=== PATIENT | male | born 1975 | race Two or more races ===

== ENCOUNTER 2018-09-10 08:27 | Emergency (ER) | payer BC ==
[~2018-09-10] VITALS: Ht 175.3 cm; Wt 116.9 kg
[2018-09-10 08:28] VITALS: BP 143/79
[2018-09-10] MEDS ORDERED: DIPH,PERTUSS(ACELL),TET VAC/PF 0.5 ML IM-VACC ONE ×2 (09:00→09:23)
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
--- NOTE | 2018-09-10 10:49 | NUR ---
Patient/Caregiver given discharge instructions and they have confirmed that they understand the instructions. Patient ambulatory with steady gait.
== END 2018-09-10 10:54 | disposition home or self-care (01) ==
LOC: ED 10:47
DX: S16.1XXA Strain of muscle, fascia and tendon at neck level, initial encounter (principal); S83.91XA Sprain of unspecified site of right knee, initial encounter; V49.09XA Driver injured in collision with other motor vehicles in nontraffic accident, initial encounter; Y93.89 Activity, other specified; Y92.89 Other specified places as the place of occurrence of the external cause; Y99.8 Other external cause status
CPT/HCPCS: 72125; 90471; 90715; 99284